=== PATIENT | male | born 1985 | race African-American/Black ===

== ENCOUNTER 2020-09-20 22:42 | Emergency (ER) | payer SELFPAY ==
[2020-09-21] MEDS ORDERED: Lidocaine 1% (PF) 30 ML VIAL ONE (00:31)
[2020-09-21] MEDS ORDERED: Bacitracin 1 PK ONE (01:05)
== END 2020-09-21 01:41 | disposition home or self-care (01) ==
LOC: ERS 22:42
DX: S01.81XA Laceration without foreign body of other part of head, initial encounter (principal); F17.210 Nicotine dependence, cigarettes, uncomplicated; Y04.0XXA Assault by unarmed brawl or fight, initial encounter
CPT/HCPCS: 12013; J2001